=== PATIENT | female | born 1950 | race Caucasian/White ===

== ENCOUNTER 2018-10-13 06:19 | Day surgery (SDC) | payer MEDICARE, OTHER ==
[2018-10-13] MEDS ORDERED: Sodium Chloride 0.9% 1,000 ML IV SCH (07:00)
[2018-10-13] MEDS ORDERED: fentaNYL 100 MCG/2 ML SDV ONE (07:26)
[2018-10-13] MEDS ORDERED: Midazolam 1 MG/ML 2 ML SDV ONE (07:26)
[2018-10-13] MEDS ORDERED: Propofol 200 MG/20 ML SDV ONE (07:26)
[2018-10-13 09:54] VITALS: BP 145/70; PULSE 49
--- NOTE | 2018-10-13 10:56 | OR ---
DATE OF PROCEDURE: 10/13/2018 SURGEON: Dioni Mcclain MD PROCEDURE: Colonoscopy. FINDINGS: Normal colonoscopy, except for diverticula x2 (early diverticulosis). COMPLICATIONS: None. DOG BOARDER: None. ANESTHESIA: MAC. PREOPERATIVE DIAGNOSIS: Screening colonoscopy. POSTOPERATIVE DIAGNOSIS: Screening colonoscopy. RISKS: Risks, benefits, alternatives, and limitations including, but not limited to infection, bleeding, and perforation were explained to the patient, who wished to proceed. PROCEDURE IN DETAIL: The patient was placed in left lateral decubitus position. Digital rectal exam was performed without abnormality. The scope was introduced and advanced atraumatically to the ileocecal valve. A photo was taken. The scope was brought back through the ascending, transverse, descending colon, and retroflexed. No evidence of old or new blood. No masses. No polyps. Diverticulosis would be described as very early, very mild, and limited to sigmoid colon without evidence of diverticulitis or bleeding. No abnormalities on retroflexion. The patient tolerated the procedure well. Dioni Mcclain MD /[id number]
== END 2018-10-13 10:02 | disposition home or self-care (01) ==
LOC: JP.SDS 06:19
PROVIDERS: ATTEND Surgery
DX: Z12.11 Encounter for screening for malignant neoplasm of colon (principal); K57.30 Diverticulosis of large intestine without perforation or abscess without bleeding; E78.5 Hyperlipidemia, unspecified; F32.9 Major depressive disorder, single episode, unspecified; R73.9 Hyperglycemia, unspecified
CPT/HCPCS: G0121; J2250; J2704; J3010; J7030

== ENCOUNTER 2019-05-09 17:30 | Emergency (ER) | payer MEDICARE, OTHER ==
[2019-05-09 17:50] VITALS: BP 92/52; PULSE 89
--- NOTE | 2019-05-09 18:42 | EDM.PDOC ---
ED HPI GENERAL MEDICAL PROBLEM - General Chief Complaint: Back Pain or Injury Stated Complaint: MED[facility] Time Seen by Provider: 05/09/19 18:15 Source of Information: Reports: Patient, EMS History Limitations: Reports: No Limitations - History of Present Illness INITIAL COMMENTS - FREE TEXT/NARRATIVE: 68-year-old female brought in by EMS with low back and sacral pain. She has been struggling with discomfort since last week when she fell onto her backside. She has no bruising, but she feels like her tailbone is "sticking out ". She is on regular doses of oxycodone for chronic pain, she is taking more than usual and is about out and is concerned she will run out. She is also struggling with chronic GI symptoms, Heidi, elevated liver enzymes and has a variety of musculoskeletal complaints. No fevers or chills, no shortness of breath or chest pain. Denies nausea or vomiting. Her main concern is her sacral and low back pain and pain control. Onset: Sudden (Symptoms worsened 7 days ago when she fell onto her backside) Location: Reports: Back, Pelvis (Lower back sacral area) Quality: Reports: Sharp - Related Data Allergies Allergy/AdvReac Type Severity Reaction Status Date / Time buspirone [From BuSpar] Allergy Cannot Verified 05/09/19 17:40 Remember cyclobenzaprine HCl AdvReac Nausea Verified 05/09/19 17:40 [From Flexeril] sertraline HCl [From Zoloft] AdvReac Dizziness Verified 05/09/19 17:40 Home Meds: Home Meds Sulindac [Clinoril] 200 mg PO BID 03/09/15 [History] diazePAM [Diazepam] 1 tab PO Q8H PRN 03/09/15 [History] Aspirin 81 mg PO DAILY 10/12/18 [History] Cholecalciferol (Vitamin D3) [Cholecalciferol] 2,000 units PO DAILY 10/12/18 [ History] Escitalopram Oxalate 5 mg PO DAILY 10/12/18 [History] Fluticasone Propionate [Flonase] 1 spray CRISS DAILY PRN 10/12/18 [History] Metoprolol Succinate [Toprol XL] 25 mg PO DAILY 10/12/18 [History] Polyethylene Glycol 3350 [Clearlax] 17 g PO DAILY PRN 10/12/18 [History] Vitamin B Complex [B Complex] 1 tab PO DAILY 10/12/18 [History] carisoprodoL [Carisoprodol] 350 mg PO QID PRN 10/12/18 [History] oxyCODONE 10 mg PO Q6HR PRN 10/12/18 [History] tiZANidine [Zanaflex] 4 mg PO BID 10/12/18 [History] Past Medical History HEENT History: Reports: Impaired Vision Cardiovascular History: Reports: Hypertension, Other (See Below) Other Cardiovascular History: TACHYCARDIA Respiratory History: Reports: None Gastrointestinal History: Reports: Cholelithiasis, Chronic Constipation, Other ( See Below) Other Gastrointestinal History: LIVER ENZYMES ARE ELEVATED Genitourinary History: Reports: None 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: Reports: Musculoskeletal History: Reports: Arthritis, Back Pain, Chronic Other Musculoskeletal History: Lumbar degenerative disc disease tremor, meniscal tear Neurological History: Reports: Concussion Psychiatric History: Reports: Anxiety, Depression Other Psychiatric History: opiod dependence Endocrine/Metabolic History: Reports: None Other Endocrine/Metabolic History: hyperglycemia Hematologic History: Reports: None, Other (See Below) Other Hematologic History: abnormal hemoglobin HCC Immunologic History: Reports: None Oncologic (Cancer) History: Reports: None Dermatologic History: Reports: None - Infectious Disease History Infectious Disease History: Reports: Chicken Pox - Past Surgical History Head Surgeries/Procedures: Reports: None HEENT Surgical History: Reports: Adenoidectomy, Tonsillectomy Cardiovascular Surgical History: Reports: None Respiratory Surgical History: Reports: None GI Surgical History: Reports: None Female Surgical History: Reports: Hysterectomy, Salpingo-Oophorectomy Neurological Surgical History: Reports: None Musculoskeletal Surgical History: Reports: Arthroscopic Knee Dermatological Surgical History: Reports: None Social & Family History - Family History Family Medical History: Noncontributory - Tobacco Use Smoking Status *Q: Never Smoker - Caffeine Use Caffeine Use: Reports: Soda ED ROS GENERAL - Review of Systems Review Of Systems: See Below Constitutional: Reports: Weight Loss. Denies: Fever, Chills Respiratory: Denies: Shortness of Breath Cardiovascular: Denies: Chest Pain, Palpitations GI/Abdominal: Reports: Constipation (Constipation is intermittent, with lower abdominal cramping) : Reports: No Symptoms Musculoskeletal: Reports: Other (Been having a lot of pain in her knees as well. Takes anti-inflammatories for plantar fasciitis) Skin: Denies: Erythema Neurological: Denies: Dizziness, Headache ED EXAM,LOWER BACK PAIN/INJURY - Physical Exam Exam: See Below Exam Limited By: No Limitations General Appearance: Alert, No Apparent Distress Eye Exam: Bilateral Eye: EOMI (No jaundice) Head: Atraumatic Neck: Supple, Non-Tender Respiratory/Chest: No Respiratory Distress, Lungs Clear Cardiovascular: Regular Rate, Rhythm Back Exam: Other (Does react with tenderness to palpation over the lower lumbar spine and sacral area, no deformity or crepitus) Extremities: Other (Extremities are thin, no edema) Neurological: Alert, No Motor/Sensory Deficits, Oriented x 3 Psychiatric: Flat Affect Skin Exam: Warm, Dry Course - Vital Signs Last Recorded V/S: Last Vital Signs Temp 96.8 F L 05/09/19 17:49 Pulse 89 05/09/19 17:49 Resp 14 05/09/19 17:49 BP 92/52 L 05/09/19 17:49 Pulse Ox 97 05/09/19 17:49 - Orders/Labs/Meds Meds: Medications Discontinued Medications Generic Name Dose Route Start Last Admin Trade Name Roya PRN Reason Stop Dose Admin Hydromorphone HCl 1 mg 05/09/19 19:21 05/09/19 19:27 Dilaudid IM 05/09/19 19:22 1 mg ONETIME ONE Administration - Re-Assessments/Exams Free Text/Narrative Re-Assessment/Exam: 05/09/19 18:59 CT of the pelvis without contrast was obtained. Patient is extremely concerned about the number of pain pills she has, she called Friday to let her provider know she was going to run out soon and found she was on vacation. I think that is a large part of the reason she is here. 05/09/19 19:[address] is negative. I did give the patient 1 mg of IM Dilaudid but I was unable to provide more oxycodone and she asked what she is supposed to do when she "goes through withdrawal". She does have a few days of pills left so I told her to contact her primary provider in the next 24 to 48 hours. Increase activity as tolerated. Departure - Departure Time of Disposition: 20:10 Disposition: Home, Self-Care 01 Clinical Impression: Contusion of sacral region Qualifiers: Encounter type: initial encounter Qualified Code(s): S30.0XXA - Contusion of lower back and pelvis, initial encounter Chronic pain Qualifiers: Chronic pain type: chronic pain syndrome Qualified Code(s): G89.4 - Chronic pain syndrome - Discharge Information Instructions: Contusion, [id number] Referrals: PCP,None [Primary Care Provider] - Forms: ED Department Discharge Care Plan Goals: Continue with your regular medications and increase activity as tolerated. Contact your primary provider in the next couple of days for an update on your condition and any refills of medications you may need. Sepsis Event Note - Evaluation Sepsis Screening Result: No Definite Risk - Focused Exam Vital Signs: Vital Signs Temp Pulse Resp BP Pulse Ox 05/09/19 17:49 96.8 F L 89 14 92/52 L 97 Date Exam was Performed: 05/09/19 Time Exam was Performed: 20:15
--- NOTE | 2019-05-09 19:14 | CRLCT ---
HISTORY: Fall. Sacral pain. TECHNIQUE: CT pelvis without contrast. COMPARISON: None. FINDINGS: No fracture. Severe osteoarthritis of the left hip with severe joint space narrowing, subarticular sclerosis, subarticular cyst like changes, and osteophytes. Mild osteoarthritis the right hip. Pubic symphysis degenerative changes. Mild degenerative changes of the sacroiliac joints. Lower lumbar spine degenerative changes. No lytic or blastic bone lesions. Atherosclerotic calcifications. Colonic diverticulosis. IMPRESSION: 1. No fracture. No acute findings. 2. Severe osteoarthritis of the left hip. Mild osteoarthritis of the right hip. Please note that all CT scans at this facility use dose modulation, iterative reconstruction, and/or weight-based dosing when appropriate to reduce radiation dose to as low as reasonably achievable. Dictated by Azam Joshi MD @ May 10 2019 7:57AM Signed by Dr. Azam Joshi @ May 10 2019 8:07AM
[2019-05-09] MEDS ORDERED: HYDROmorphone 1 MG/ML Syringe IM ONE (19:21)
== END 2019-05-09 20:31 | disposition home or self-care (01) ==
LOC: JP.ED 17:30
DX: S30.0XXA Contusion of lower back and pelvis, initial encounter (principal); G89.4 Chronic pain syndrome; I10 Essential (primary) hypertension; M19.90 Unspecified osteoarthritis, unspecified site; F41.9 Anxiety disorder, unspecified; F32.9 Major depressive disorder, single episode, unspecified; Z88.8 Allergy status to other drugs, medicaments and biological substances; Z79.82 Long term (current) use of aspirin; Z79.899 Other long term (current) drug therapy; W19.XXXA Unspecified fall, initial encounter
CPT/HCPCS: 72192; 96372; 99283; 99284-25; J1170

== ENCOUNTER 2020-02-19 15:54 | Emergency (ER) | payer MEDICARE, OTHER ==
--- NOTE | 2020-02-19 16:49 | EDM.PDOC ---
ED HPI GENERAL MEDICAL PROBLEM - General Chief Complaint: Gastrointestinal Problem Stated Complaint: [facility] Time Seen by Provider: 02/19/20 16:31 Source of Information: Reports: Patient, RN Notes Reviewed History Limitations: Reports: No Limitations - History of Present Illness INITIAL COMMENTS - FREE TEXT/NARRATIVE: 69-year-old female presents emergency department a complaint of abdominal pain, she states she does have a problem with constipation has not had a decent bowel movement for some time she is passing liquid stool and small leslie abdominal Pain Score (Numeric/FACES): 8 - Related Data Allergies Allergy/AdvReac Type Severity Reaction Status Date / Time buspirone [From BuSpar] Allergy Cannot Verified 02/19/20 15:57 Remember cyclobenzaprine HCl AdvReac Nausea Verified 02/19/20 15:57 [From Flexeril] sertraline HCl [From Zoloft] AdvReac Dizziness Verified 02/19/20 15:57 Home Meds: Home Meds Cholecalciferol (Vitamin D3) [Cholecalciferol] 2,000 units PO DAILY 10/12/18 [History] Fluticasone Propionate [Flonase] 1 spray CRISS DAILY PRN 10/12/18 [History] Metoprolol Succinate [Toprol XL] 12.5 mg PO DAILY 10/12/18 [History] Vitamin B Complex [B Complex] 1 tab PO DAILY 10/12/18 [History] oxyCODONE 10 mg PO Q6HR 10/12/18 [History] polyethylene glycoL 3350 [Clearlax] 17 g PO DAILY PRN 10/12/18 [History] Alendronate [Fosamax] 70 mg PO ASDIRECTED 02/19/20 [History] Past Medical History HEENT History: Reports: Impaired Vision Cardiovascular History: Reports: Hypertension, Other (See Below) Other Cardiovascular History: TACHYCARDIA Gastrointestinal History: Reports: Cholelithiasis, Chronic Constipation, Other (See Below) Other Gastrointestinal History: LIVER ENZYMES ARE ELEVATED 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: Reports: Musculoskeletal History: Reports: Arthritis, Back Pain, Chronic Other Musculoskeletal History: Lumbar degenerative disc disease tremor, meniscal tear Neurological History: Reports: Concussion Psychiatric History: Reports: Anxiety, Depression Other Psychiatric History: opiod dependence Endocrine/Metabolic History: Reports: Other (See Below) Other Endocrine/Metabolic History: hyperglycemia Hematologic History: Reports: None, Other (See Below) Other Hematologic History: abnormal hemoglobin HCC Immunologic History: Reports: None Oncologic (Cancer) History: Reports: None Dermatologic History: Reports: None - Infectious Disease History Infectious Disease History: Reports: Chicken Pox - Past Surgical History Head Surgeries/Procedures: Reports: None HEENT Surgical History: Reports: Adenoidectomy, Tonsillectomy Cardiovascular Surgical History: Reports: None Respiratory Surgical History: Reports: None Female Surgical History: Reports: Hysterectomy, Salpingo-Oophorectomy, Other (See Below) Other Female Surgeries/Procedures: partial hysterectomy, removal cyst Neurological Surgical History: Reports: None Musculoskeletal Surgical History: Reports: Arthroscopic Knee Dermatological Surgical History: Reports: None Social & Family History - Family History Family Medical History: No Pertinent Family History - Tobacco Use Tobacco Use Status *Q: Never Tobacco User - Caffeine Use Caffeine Use: Reports: Soda - Recreational Drug Use Recreational Drug Use: No ED ROS GENERAL - Review of Systems Review Of Systems: See Below GI/Abdominal: Reports: Abdominal Pain, Constipation ED EXAM, GI/ABD - Physical Exam Exam: See Below Exam Limited By: No Limitations General Appearance: Alert, WD/WN, No Apparent Distress Respiratory/Chest: No Respiratory Distress GI/Abdominal Exam: Soft, Non-Tender Course - Vital Signs Last Recorded V/S: Last Vital Signs Temp 98.5 F 02/19/20 16:03 Pulse 100 02/19/20 18:05 Resp 12 02/19/20 18:05 BP 127/82 02/19/20 18:05 Pulse Ox 96 02/19/20 18:05 - Orders/Labs/Meds Orders: Active Orders 24 hr Category Date Time Status Enema [RC] ASDIRECTED Care 02/19/20 17:59 Active Departure - Departure Time of Disposition: 18:34 Disposition: Home, Self-Care 01 Condition: Fair Clinical Impression: Functional constipation - Discharge Information Instructions: Constipation, Adult Referrals: PCP,None [Primary Care Provider] - Forms: ED Department Discharge Additional Instructions: Continue to use MiraLAX at home, please followup with your primary care provider in 3-5 days if not better, please call return to the emergency department with worsening of symptoms. Sepsis Event Note (ED) - Evaluation Sepsis Screening Result: No Definite Risk - Focused Exam Vital Signs: Vital Signs Temp Pulse Resp BP Pulse Ox 02/19/20 18:05 100 12 127/82 96 02/19/20 17:17 102 H 12 142/85 H 96 02/19/20 16:03 98.5 F 103 H 12 144/100 H 95 - My Orders Last 24 Hours: My Active Orders 02/19/20 17:59 Enema [RC] ASDIRECTED - Assessment/Plan Last 24 Hours: My Active Orders 02/19/20 17:59 Enema [RC] ASDIRECTED Plan: Assessment Acuity = acute Site and laterality = functional constipation Etiology = slow transit time Manifestations = abdominal pain Location of injury = Home Lab values = plain film the abdomen does show large amount of stool Plan Good success with enema provided in the ED she is can use MiraLAX at home follow-up primary care 3 to 5 days if not better This note was dictated using [employer] voice recognition software please call with any questions on syntax or grammar.
--- NOTE | 2020-02-19 17:36 | CRLCR ---
INDICATION: Pain TECHNIQUE: KUB FINDINGS: Nonspecific bowel gas pattern. No dilated loops of bowel. multiple air-fluid levels large amount stool within the colon no free air. No abnormal masses or calcifications. Impression: Nonspecific nonobstructive bowel gas pattern with large colonic stool volume. Scattered air-fluid levels. Dictated by Aileen José MD @ Feb 19 2020 5:33PM Signed by Dr. Aileen José @ Feb 19 2020 5:34PM
[2020-02-19 18:05] VITALS: BP 127/82; PULSE 100
== END 2020-02-19 19:49 | disposition home or self-care (01) ==
LOC: JP.ED 15:54
DX: K59.04 Chronic idiopathic constipation (principal); I10 Essential (primary) hypertension; Z88.8 Allergy status to other drugs, medicaments and biological substances; Z79.899 Other long term (current) drug therapy
CPT/HCPCS: 74018; 99283

== ENCOUNTER 2020-12-08 12:58 | Inpatient (IN) | payer MEDICARE, OTHER ==
--- NOTE | 2020-12-08 13:47 | EDM.PDOCBH ---
ED HPI GENERAL MEDICAL PROBLEM - General Chief Complaint: Abdominal Pain Stated Complaint: [facility] Time Seen by Provider: 12/08/20 13:38 Source of Information: Reports: Patient, RN Notes Reviewed History Limitations: Reports: No Limitations - History of Present Illness INITIAL COMMENTS - FREE TEXT/NARRATIVE: 69-year-old female presents emergency department today right upper quadrant pain, she recently underwent CT scan earlier this week which shows with cholelithiasis, she states the pain is getting worse she does have nausea which is pain there is no relationship to food arrived by EMS received 150 mcg of fentanyl and 4 mg Zofran - Related Data Allergies Allergy/AdvReac Type Severity Reaction Status Date / Time buspirone [From BuSpar] Allergy Cannot Verified 12/08/20 14:23 Remember cyclobenzaprine HCl AdvReac Nausea Verified 12/08/20 14:23 [From Flexeril] sertraline HCl [From Zoloft] AdvReac Dizziness Verified 12/08/20 14:23 Home Meds: Home Meds Cholecalciferol (Vitamin D3) [Cholecalciferol] 2,000 units PO DAILY 10/12/18 [History] Fluticasone Propionate [Flonase] 1 spray CRISS DAILY PRN 10/12/18 [History] Metoprolol Succinate [Toprol XL] 12.5 mg PO DAILY 10/12/18 [History] Vitamin B Complex [B Complex] 1 tab PO DAILY 10/12/18 [History] oxyCODONE 10 mg PO Q6HR 10/12/18 [History] polyethylene glycoL 3350 [Clearlax] 17 g PO DAILY PRN 10/12/18 [History] Alendronate [Fosamax] 70 mg PO ASDIRECTED 02/19/20 [History] Naloxegol Oxalate [Movantik] 1 tab PO DAILY 12/08/20 [History] Past Medical History HEENT History: Reports: Impaired Vision Cardiovascular History: Reports: Hypertension, Other (See Below) Other Cardiovascular History: TACHYCARDIA Gastrointestinal History: Reports: Cholelithiasis, Chronic Constipation, Other (See Below) Other Gastrointestinal History: LIVER 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: Musculoskeletal History: Reports: Arthritis, Back Pain, Chronic Other Musculoskeletal History: Lumbar degenerative disc disease tremor, meniscal tear Neurological History: Reports: Concussion Psychiatric History: Reports: Anxiety, Depression Other Psychiatric History: opiod dependence Endocrine/Metabolic History: Reports: Other (See Below) Other Endocrine/Metabolic History: hyperglycemia Hematologic History: Reports: Other (See Below) Other Hematologic History: abnormal hemoglobin HCC - Infectious Disease History Infectious Disease History: Reports: Chicken Pox - Past Surgical History Head Surgeries/Procedures: Reports: None HEENT Surgical History: Reports: Adenoidectomy, Tonsillectomy Cardiovascular Surgical History: Reports: None Respiratory Surgical History: Reports: None Female Surgical History: Reports: Hysterectomy, Salpingo-Oophorectomy, Other (See Below) Other Female Surgeries/Procedures: partial hysterectomy, removal cyst Neurological Surgical History: Reports: None Musculoskeletal Surgical History: Reports: Arthroscopic Knee Dermatological Surgical History: Reports: None Social & Family History - Family History Family Medical History: No Pertinent Family History - Caffeine Use Caffeine Use: Reports: Soda ED ROS GENERAL - Review of Systems Review Of Systems: See Below Constitutional: Denies: Fever, Chills HEENT: Reports: No Symptoms Respiratory: Reports: No Symptoms Cardiovascular: Reports: No Symptoms GI/Abdominal: Reports: Abdominal Pain, Nausea : Reports: No Symptoms ED EXAM, BEHAVIORAL HEALTH - Physical Exam Exam: See Below Exam Limited By: No Limitations General Appearance: Alert, WD/WN, No Apparent Distress Respiratory/Chest: No Respiratory Distress, Lungs Clear, Normal Breath Sounds, No Accessory Muscle Use, Chest Non-Tender Cardiovascular: Regular Rate, Rhythm, No Murmur GI/Abdominal: Soft, Tender (Right upper quadrant) COURSE, BEHAVIORAL HEALTH COMP - Course Vital Signs: Last Vital Signs Temp 97.3 F 12/09/20 03:31 Pulse 94 12/09/20 03:31 Resp 18 12/09/20 03:31 BP 139/70 12/09/20 03:31 Pulse Ox 92 L 12/09/20 03:31 Orders, Labs, Meds: Active Orders 24 hr Category Date Time Status Verify Patient Consent Obtain [RC] ASDIRECTED Care 12/09/20 08:30 Active Ampicillin/Sulbactam Na [Unasyn] 1.5 gm Med 12/08/20 23:30 Active Sodium Chloride 0.9% [Normal Saline] 50 ml IV Q6H Dextrose 5%-Lactated Ringers 1,000 ml Med 12/08/20 15:45 Active IV ASDIRECTED HYDROmorphone [Dilaudid] Med 12/08/20 23:20 Active 0.5 mg IVPUSH Q4H PRN Ropivacaine [Naropin 0.5%] 40 ml Med 12/09/20 08:00 Active dexAMETHasone [Decadron] 8 mg EPINEPHrine [Adrenalin] 0.4 mg Sodium Chloride 0.9% [Normal Saline] 37.6 ml NERVRT ASDIRECTED SCD [Sequential Compression Device] [OM.PC] Routine Oth 12/09/20 07:30 Ordered Medication Orders Ropivacaine 40 ml/Dexamethasone 8 mg/Epinephrine HCl 0.4 mg/ Sodium Chloride 37.6 ml 0 ml NERVRT ASDIRECTED ODILIA Hydromorphone HCl (Hydromorphone 0.5 Mg/0.5 Ml Syringe) 0.5 mg IVPUSH Q4H PRN PRN Reason: Pain Last Admin: 12/09/20 07:35 Dose: 0.5 mg Documented by: Admin: 12/09/20 03:31 Dose: 0.5 mg Documented by: Admin: 12/08/20 23:30 Dose: 0.5 mg Documented by: SRINIVASA Dextrose/Lactated Ringer's (Dextrose 5%-Lactated Ringers) 1,000 mls @ 125 mls/hr IV ASDIRECTED [facility] Last Admin: 12/09/20 01:44 Dose: 125 mls/hr Documented by: Infusion: 12/09/20 00:36 Dose: 125 mls/hr Documented by: Admin: 12/08/20 16:36 Dose: 125 mls/hr Documented by: HARPER Ampicillin Sodium/Sulbactam (Sodium 1.5 gm/ Sodium Chloride) 50 mls @ 100 mls/hr IV Q6H [facility] Last Admin: 12/09/20 05:28 Dose: 100 mls/hr Documented by: Admin: 12/08/20 23:31 Dose: 100 mls/hr Documented by: SRINIVASA Laboratory Tests 12/08/20 12/08/20 12/08/20 Range/Units 13:43 13:43 13:43 WBC 16.6 H (4.5-11.0) K/uL RBC 5.31 (3.30-5.50) M/uL Hgb 16.2 H (12.0-15.0) g/dL Hct 47.8 (36.0-48.0) % MCV 90 (80-98) fL MCH 31 (27-31) pg MCHC 34 (32-36) % Plt Count 97 L (150-400) K/uL Neut % (Auto) 87.6 H (36-66) % Lymph % (Auto) 5.3 L (24-44) % Grant % (Auto) 4.7 (2-6) % Eos % (Auto) 2.3 (2-4) % Baso % (Auto) 0.1 (0-1) % Sodium 134 L (140-148) mmol/L Potassium 4.9 (3.6-5.2) mmol/L Chloride 100 (100-108) mmol/L Carbon Dioxide 23 (21-32) mmol/L Anion Gap 15.9 H (5.0-14.0) mmol/L BUN 12 (7-18) mg/dL Creatinine 1.1 H (0.6-1.0) mg/dL Est Cr Clr Drug Dosing 35.91 mL/min Estimated GFR (MDRD) 49 L (>60) Glucose 114 H (74-106) mg/dL Lactic Acid 1.6 (0.4-2.0) mmol/L Calcium 8.4 L (8.5-10.1) mg/dL Total Bilirubin 0.7 (0.2-1.0) mg/dL AST 22 (15-37) U/L ALT 24 (12-78) U/L Alkaline Phosphatase 116 (46-116) U/L Troponin I < 0.017 (0.000-0.056) ng/mL Total Protein 6.4 (6.4-8.2) g/dL Albumin 3.4 (3.4-5.0) g/dL Globulin 3.0 (2.3-3.5) g/dL Albumin/Globulin Ratio 1.1 L (1.2-2.2) Lipase 87 (73-393) U/L Urine Color (YELLOW) Urine Appearance (CLEAR) Urine pH (5.0-8.0) Ur Specific [place] (1.008-1.030) Urine Protein (NEGATIVE) mg/dL Urine Glucose (UA) (NEGATIVE) mg/dL Urine Ketones (NEGATIVE) mg/dL Urine Occult Blood (NEGATIVE) Urine Nitrite (NEGATIVE) Urine Bilirubin (NEGATIVE) Urine Urobilinogen (0.2-1.0) EU/dL Ur Leukocyte Esterase (NEGATIVE) Urine RBC (0-5) Urine WBC (0-5) Ur Epithelial Cells Amorphous Sediment Urine Bacteria Urine Mucus SARS CoV-2 RNA Rapid VICTORINA 12/08/20 12/08/20 Range/Units 15:19 15:55 WBC (4.5-11.0) K/uL RBC (3.30-5.50) M/uL Hgb (12.0-15.0) g/dL Hct (36.0-48.0) % MCV (80-98) fL MCH (27-31) pg MCHC (32-36) % Plt Count (150-400) K/uL Neut % (Auto) (36-66) % Lymph % (Auto) (24-44) % Grant % (Auto) (2-6) % Eos % (Auto) (2-4) % Baso % (Auto) (0-1) % Sodium (140-148) mmol/L Potassium (3.6-5.2) mmol/L Chloride (100-108) mmol/L Carbon Dioxide (21-32) mmol/L Anion Gap (5.0-14.0) mmol/L BUN (7-18) mg/dL Creatinine (0.6-1.0) mg/dL Est Cr Clr Drug Dosing mL/min Estimated GFR (MDRD) (>60) Glucose (74-106) mg/dL Lactic Acid (0.4-2.0) mmol/L Calcium (8.5-10.1) mg/dL Total Bilirubin (0.2-1.0) mg/dL AST (15-37) U/L ALT (12-78) U/L Alkaline Phosphatase (46-116) U/L Troponin I (0.000-0.056) ng/mL Total Protein (6.4-8.2) g/dL Albumin (3.4-5.0) g/dL Globulin (2.3-3.5) g/dL Albumin/Globulin Ratio (1.2-2.2) Lipase (73-393) U/L Urine Color Yellow (YELLOW) Urine Appearance Clear (CLEAR) Urine pH 6.0 (5.0-8.0) Ur Specific [place] 1.025 (1.008-1.030) Urine Protein Negative (NEGATIVE) mg/dL Urine Glucose (UA) Negative (NEGATIVE) mg/dL Urine Ketones 15 H (NEGATIVE) mg/dL Urine Occult Blood Negative (NEGATIVE) Urine Nitrite Negative (NEGATIVE) Urine Bilirubin Negative (NEGATIVE) Urine Urobilinogen 0.2 (0.2-1.0) EU/dL Ur Leukocyte Esterase Negative (NEGATIVE) Urine RBC 0-5 (0-5) Urine WBC 0-5 (0-5) Ur Epithelial Cells Few Amorphous Sediment Not seen Urine Bacteria Moderate Urine Mucus Not seen SARS CoV-2 RNA Rapid VICTORINA Negative Medications Generic Name Dose Route Start Last Admin Trade Name Roya PRN Reason Stop Dose Admin Ropivacaine 40 ml/ 0 ml 12/09/20 08:00 Dexamethasone 8 mg/ NERVRT Epinephrine HCl 0.4 mg/ Sodium ASDIRECTED ODILIA Chloride 37.6 ml Hydromorphone HCl 0.5 mg 12/08/20 23:20 12/09/20 07:35 Hydromorphone 0.5 Mg/0.5 Ml Syringe IVPUSH 0.5 mg Q4H PRN Administration Pain Dextrose/Lactated Ringer's 1,000 mls @ 125 mls/hr 12/08/20 15:45 12/09/20 01:44 Dextrose 5%-Lactated Ringers IV 125 mls/hr ASDIRECTED ODILIA Administration Ampicillin Sodium/Sulbactam 50 mls @ 100 mls/hr 12/08/20 23:30 12/09/20 05:28 Sodium 1.5 gm/ Sodium Chloride IV 100 mls/hr Q6H ODILIA Administration Discontinued Medications Generic Name Dose Route Start Last Admin Trade Name Roya PRN Reason Stop Dose Admin Acetaminophen 1,000 mg 12/08/20 19:37 12/08/20 19:48 Acetaminophen 500 Mg Tab PO 12/08/20 19:38 1,000 mg ONETIME ONE Administration Bupivacaine HCl/Epinephrine Bitart Confirm 12/09/20 08:43 Bupivacaine 0.5%/Epinephrine 1:200,000 50 Ml Mdv Administered 12/09/20 08:44 Dose 50 ml .ROUTE .STK-MED ONE Hydromorphone HCl 0.5 mg 12/08/20 14:13 12/08/20 14:20 Hydromorphone 0.5 Mg/0.5 Ml Syringe IVPUSH 12/08/20 14:14 0.5 mg ONETIME ONE Administration Hydromorphone HCl 0.5 mg 12/08/20 19:19 12/08/20 19:33 Hydromorphone 0.5 Mg/0.5 Ml Syringe IVPUSH 12/08/20 19:20 0.5 mg ONETIME ONE Administration Multivitamins/Minerals 10 ml/ 1,013 mls @ 100 mls/hr 12/08/20 15:45 Thiamine HCl 200 mg/ Zinc 1 ml IV / Dextrose/Lactated Ringer's ASDIRECTED ODILIA Ampicillin Sodium/Sulbactam 100 mls @ 200 mls/hr 12/08/20 16:00 12/08/20 16:36 Sodium 3 gm/ Sodium Chloride IV 12/08/20 16:29 200 mls/hr ONETIME ONE Administration Ampicillin Sodium/Sulbactam 50 mls @ 100 mls/hr 12/08/20 23:30 Sodium 1.5 gm/ Sodium Chloride IV Q6H ODILIA Aztreonam 1 gm/ Sodium 50 mls @ 100 mls/hr 12/09/20 08:00 12/09/20 08:53 Chloride IV 12/09/20 08:29 100 mls/hr ONCALL ONE Administration Departure - Departure Time of Disposition: 08:58 Disposition: Admitted As Inpatient 65 Condition: Fair Clinical Impression: Cholecystitis - Discharge Information Sepsis Event Note (ED) - Focused Exam Vital Signs: Vital Signs Temp Pulse Resp BP Pulse Ox 12/09/20 03:31 97.3 F 94 18 139/70 92 L 12/08/20 22:35 97.8 F 112 H 18 113/54 L 92 L - My Orders Last 24 Hours: My Active Orders 12/08/20 15:45 Dextrose 5%-Lactated Ringers 1,000 ml IV ASDIRECTED - Assessment/Plan Last 24 Hours: My Active Orders 12/08/20 15:45 Dextrose 5%-Lactated Ringers 1,000 ml IV ASDIRECTED Plan: Assessment Acuity = acute Site and laterality = acute cholecystitis Etiology = unknown Manifestations = abdominal pain Location of injury = Home Lab values = WBC elevated 16.6 consistent leukocytosis creatinine elevated 1.1 consistent acute renal failure stage G3 a lactic acid normal 1.6 Covid is negative ultrasound confirms cholecystitis Plan Because this lady needed admission last night no beds could not transfer call discussed case with Dr. Isbell last night he agreed to take her to the operating room this morning when beds become available therefore we treated her in the emergency department through the night This note was dictated using [employer] voice recognition software please call with any questions on syntax or grammar.
[2020-12-08] MEDS ORDERED: HYDROmorphone 0.5 MG/0.5 ML Syringe IVPUSH ONE ×2 (14:13→19:19)
--- NOTE | 2020-12-08 15:17 | US ---
Abdomen Ltd CLINICAL HISTORY: Right upper quadrant pain COMPARISON: CT 12/04/2020. TECHNIQUE: Real-time images were obtained through the right upper quadrant. FINDINGS: Detail is limited due to patient body habitus. The liver is free of mass or biliary dilatation. There is normal hepatic echotexture. The gallbladder contains multiple stones. There is a soft tissue like density in the mid gallbladder which does not shadow. There is no internal flow. This measures approximately 2.0 x 2.9 cm. The gallbladder wall is thickened at 5 mm. There is edema within the gallbladder wall. There may be a small amount of pericholecystic fluid.. The common bile duct is obscured.. The pancreas is partially obscured. The right kidney has a normal appearance. The IVC is normal. IMPRESSION: Cholelithiasis with changes of acute cholecystitis Nonshadowing soft tissue tissue filling defect within the gallbladder. This may be debris or possibly a gallbladder polyp Common bile duct is not visualized
[2020-12-08] MEDS ORDERED: Piperacillin/Tazobactam 4.5 GM in Sodium Chloride 0.9% 100 ML IV ONE (15:20)
[2020-12-08] MEDS ORDERED: Ampicillin/Sulbactam Na 3 GM in Sodium Chloride 0.9% 100 ML IV SCH (15:45)
[2020-12-08] MEDS ORDERED: MVI, Adult with Vitamin K 10 ML, Thiamine 200 MG, Zinc/Copper/Manganese/Selenium 1 ML i... IV SCH ×4 (15:45)
[2020-12-08] MEDS ORDERED: Ampicillin/Sulbactam Na 3 GM in Sodium Chloride 0.9% 100 ML IV ONE (16:00)
[2020-12-08] MEDS: Dextrose 5%-Lactated Ringers 1,000 ML IV SCH (16:36)
[2020-12-08] MEDS ORDERED: Acetaminophen 500 MG Tab PO ONE (19:37)
[2020-12-08] MEDS: HYDROmorphone 0.5 MG/0.5 ML Syringe IVPUSH PRN (23:30)
[2020-12-08] MEDS ORDERED: Ampicillin/Sulbactam Na 1.5 GM in Sodium Chloride 0.9% 50 ML IV SCH (23:30)
[2020-12-08] MEDS: Ampicillin/Sulbactam Na 1.5 GM in Sodium Chloride 0.9% 50 ML IV SCH (23:31)
[2020-12-09] MEDS: Dextrose 5%-Lactated Ringers 1,000 ML IV SCH ×3 (01:44→23:26)
[2020-12-09] MEDS: HYDROmorphone 0.5 MG/0.5 ML Syringe IVPUSH PRN ×3 (03:31→17:27)
[2020-12-09] MEDS: Ampicillin/Sulbactam Na 1.5 GM in Sodium Chloride 0.9% 50 ML IV SCH (05:28)
[2020-12-09] MEDS ORDERED: Ropivacaine 40 ML, dexAMETHasone 8 MG, EPINEPHrine 0.4 MG, Sodium Chloride 0.9% 37.6 ML NERVRT SCH ×4 (08:00)
[2020-12-09] MEDS ORDERED: Bupivacaine 0.5%/EPINEPHrine 1:200,000 50 ML MDV ONE (08:43)
[2020-12-09] MEDS ORDERED: Neostigmine Methylsulfate 1 MG/ML 5 ML Syringe ONE (08:56)
[2020-12-09] MEDS ORDERED: Succinylcholine 200 MG/10 ML MDV ONE (08:56)
[2020-12-09] MEDS ORDERED: Propofol 200 MG/20 ML SDV ONE (08:56)
[2020-12-09] MEDS ORDERED: fentaNYL 250 MCG/5 ML SDV ONE (08:56)
[2020-12-09] MEDS ORDERED: Rocuronium 50 MG/5 ML Vial ONE (08:56)
[2020-12-09] MEDS ORDERED: Glycopyrrolate 0.2 MG/ML 5 ML MDV ONE (08:56)
[2020-12-09] MEDS ORDERED: Dexamethasone 4 MG/ML SDV ONE (08:56)
[2020-12-09] MEDS ORDERED: Ondansetron 4 MG/2 ML SDV ONE (08:56)
[2020-12-09] MEDS ORDERED: Lactated Ringers 1,000 ML ONE (09:20)
[2020-12-09] MEDS ORDERED: Labetalol 20 MG/4 ML Syringe ONE (09:29)
[2020-12-09] MEDS ORDERED: hydrOXYzine HCL 100 MG/2 ML SDV IM ONE (10:37)
[2020-12-09] MEDS ORDERED: fentaNYL 100 MCG/2 ML SDV IVPUSH ONE ×2 (10:39→11:05)
[2020-12-09] MEDS ORDERED: Ondansetron 4 MG/2 ML SDV IVPUSH PRN (12:00)
[2020-12-09] MEDS: HYDROmorphone 1 MG/ML Syringe IV PRN ×3 (12:05→20:21)
[2020-12-09] MEDS: oxyCODONE 5 MG Tab PO PRN ×3 (13:09→21:46)
[2020-12-09] MEDS ORDERED: Pantoprazole 40 MG Vial IVPUSH SCH (14:00)
[2020-12-09] MEDS: Ampicillin/Sulbactam Na 3 GM in Sodium Chloride 0.9% 100 ML IV SCH ×2 (14:04→20:17)
[2020-12-09] MEDS: Metoprolol Succinate 25 MG Tab.ER PO SCH (14:04)
[2020-12-10] MEDS: HYDROmorphone 1 MG/ML Syringe IV PRN (00:37)
[2020-12-10] MEDS: Ampicillin/Sulbactam Na 3 GM in Sodium Chloride 0.9% 100 ML IV SCH ×4 (02:23→19:52)
[2020-12-10] MEDS: oxyCODONE 5 MG Tab PO PRN ×6 (02:27→23:31)
[2020-12-10] MEDS: Docusate Sodium 100 MG Cap PO SCH ×2 (08:03→21:16)
[2020-12-10] MEDS: Bisacodyl 5 MG Tab PO SCH ×2 (08:04→21:16)
[2020-12-10] MEDS: HYDROmorphone 0.5 MG/0.5 ML Syringe IVPUSH PRN ×2 (10:16→14:00)
[2020-12-10] MEDS: Metoprolol Succinate 25 MG Tab.ER PO SCH (10:23)
[2020-12-10] MEDS: Pantoprazole 40 MG Tab.CR PO SCH (11:20)
[2020-12-10] MEDS: Dextrose 5%-Lactated Ringers 1,000 ML IV SCH ×2 (11:55→23:32)
[2020-12-10] MEDS: HYDROmorphone 2 MG Tab PO PRN (21:16)
[2020-12-10] MEDS: Temazepam 15 MG Cap PO PRN (21:16)
[2020-12-11] MEDS: HYDROmorphone 2 MG Tab PO PRN ×5 (01:13→20:36)
[2020-12-11] MEDS: Ampicillin/Sulbactam Na 3 GM in Sodium Chloride 0.9% 100 ML IV SCH ×3 (02:05→13:33)
[2020-12-11] MEDS: oxyCODONE 5 MG Tab PO PRN ×4 (03:59→18:13)
[2020-12-11] MEDS: Pantoprazole 40 MG Tab.CR PO SCH (07:49)
[2020-12-11] MEDS ORDERED: Furosemide 20 MG/2 ML VIAL IV ONE (08:30)
[2020-12-11] MEDS ORDERED: Bisacodyl 5 MG Tab PO SCH (09:00)
[2020-12-11] MEDS: Bisacodyl 5 MG Tab PO SCH ×2 (09:35→20:36)
[2020-12-11] MEDS: Docusate Sodium 100 MG Cap PO SCH ×2 (09:35→20:36)
[2020-12-11] MEDS: Metoprolol Succinate 25 MG Tab.ER PO SCH (09:36)
[2020-12-11] MEDS: Temazepam 15 MG Cap PO PRN (20:37)
[2020-12-12] MEDS: HYDROmorphone 2 MG Tab PO PRN ×5 (00:31→19:47)
[2020-12-12] MEDS: oxyCODONE 5 MG Tab PO PRN ×5 (02:43→22:04)
--- NOTE | 2020-12-12 08:06 | PN ---
DATE OF SERVICE: 12/12/2020 Evlein is postop cholecystectomy. She reports she still is having quite a bit of pain. She started passing gas. She has been afebrile. Oral intake not recorded. She is voiding independently and has had 4 voids. Urine output 2900. REVIEW OF SYSTEMS: Remainder of review of systems negative for any pertinent positives and negatives. OBJECTIVE: Evelin Mcintyre is a 69-year-old female. She is quite sleepy. TPR is 98, 104, 16, and blood pressure 148/64. HEENT: Negative. NECK: Supple. HEART: Regular rate and rhythm. LUNGS: Clear. ABDOMEN: Dressings dry and intact. Abdominal binder on. EXTREMITIES: Without peripheral edema. ASSESSMENT: Diagnostic laparoscopy with: 1. Cholecystectomy. 2. Repair of incarcerated incisional hernia. POSTOPERATIVE DIAGNOSIS: Acute cholecystitis and incarcerated incisional hernia. DATE OF PROCEDURE: 12/09/2020. SURGEON: Messi Isbell MD PLAN: Continue to give current bowel stimulation. She does take Movantik at home occasionally, but states she does not want to take that here because of increased cramping. Continue use of incentive spirometer and ambulation. We will evaluate p.r.n. or in a.m. Fatimah Mendoza PA-C /[id number]
[2020-12-12] MEDS: Pantoprazole 40 MG Tab.CR PO SCH (08:48)
[2020-12-12] MEDS: Metoprolol Succinate 25 MG Tab.ER PO SCH (08:48)
[2020-12-12] MEDS: Bisacodyl 5 MG Tab PO SCH ×2 (08:48→20:24)
[2020-12-12] MEDS: Docusate Sodium 100 MG Cap PO SCH ×2 (08:49→20:24)
--- NOTE | 2020-12-12 10:27 | PN ---
DATE OF SERVICE: 12/11/2020 The patient is still having quite a bit of discomfort. She does normally take 4 doses of daily, so she has fair bit of narcotic tolerance. We will contact that dose, otherwise, she may be interested in short-term long term placement and we will have OT and PT as well as discharge planning initiate that today. JANINE drain will be coming out and we will begin some bowel stimulation. Messi Isbell MD /[id number]
--- NOTE | 2020-12-12 11:18 | PN ---
DATE OF SERVICE: 12/10/2020 The patient has been afebrile with stable vital signs. She is still having a fair bit of discomfort. White count remains elevated some at 18,000, otherwise her labs look satisfactory. We will the pericholecystic abscess growing some gram-negative rods and with this we will continue the IV antibiotics for the next 24 hours. The wound VAC will be removed and dressing changes initiated and she will likely be ready for discharge home tomorrow. Messi Isbell MD /[id number]
--- NOTE | 2020-12-12 14:33 | OR ---
DATE OF PROCEDURE: 12/09/2020 SURGEON: Messi Isbell MD PREOPERATIVE DIAGNOSIS: Acute cholecystitis and cholelithiasis. POSTOPERATIVE DIAGNOSES: 1. Acute cholecystitis and cholelithiasis. 2. Incarcerated incisional hernia. 3. Pericholecystic abscess. OPERATIVE PROCEDURE: Diagnostic laparoscopy with: 1. Cholecystectomy (11548). 2. Repair of incarcerated incisional hernia (34735). 3. Drainage of pericholecystic abscess (19337). ANESTHESIA: General. INDICATION FOR PROCEDURE: A 69-year-old female presenting with cholecystitis. After preoperative preparation and antibiotics, the patient is to undergo laparoscopic or if necessary open cholecystectomy. Potential risks including bleeding, infection, injury to underlying viscera, possible migration of stones to common bile duct were all reviewed along with remote possibility of cardiopulmonary, septic, or hemorrhagic complications leading to and the patient wishes to proceed. DESCRIPTION OF PROCEDURE: The patient was taken to the operating room, placed in a supine position. After general endotracheal anesthesia was induced, the abdomen was prepped and draped. A transverse epigastric incision was made and peritoneal cavity entered under direct vision with an Optiview trocar and inflated to 15 mmHg pressure of CO2. No underlying trocar insertion site injuries were seen. Following this, the patient was noted to have an incarcerated hernia in the immediate subumbilical area due to a previous transverse incision in that area. Incision overlying this was then made and carried down through the skin and subcutaneous tissue and the incarcerated omentum was then dissected free from the surrounding soft tissues and we turned back to the peritoneal cavity. Through this, a 12 mm trocar was placed and used at this point for the camera port. A 5 mm right subcostal trocar was then placed and the gallbladder was examined. Gallbladder was noted to be extremely friable, distended, and mosher in color. The gallbladder was initially decompressed after opening the apex with electrocautery to allow better handling. As the gallbladder retracted anteriorly and superiorly, an inflammatory fluid collection or abscess was encountered posterior to the gallbladder. This was evacuated and culture was obtained. Subsequent cultures were growing up gram-negative rods. The dissection began on the gallbladder neck and continued around the gallbladder neck and cystic duct junction. Once that area was well delineated along with adjacent cystic artery, both structures were taken with MARIE staple loads and then gallbladder was then dissected off the gallbladder bed using Harmonic scalpel and it was delivered in a somewhat piecemeal fashion through the epigastric trocar site and contained 1 large stone as well as multiple smaller stones. Area of dissection was inspected. No bleeding or bile leaks were seen. A Eliot-Parmar drain was taken out through the right lateral trocar site, positioned in the area of the gallbladder fossa. The camera was then brought back up to the epigastric site and the hernia was then repaired by placement of 0 Vicryl suture in a transverse orientation using the laparoscopic suture passer. Once these were in place, the remaining trocars were removed and peritoneal cavity deflated. Fascia at the epigastric site was also closed with 0 Vicryl stitch and the hernia site sutures were then tied. The subumbilical incision was then closed at the skin level with some 4-0 Vicryl stitch and the epigastric site was packed open at the subcutaneous tissue level with Iodoform gauze. The patient then received bilateral transversus abdominis plane blocks and then the incision was anesthetized with some 0.5% Marcaine as well. The patient was taken to the recovery room in satisfactory condition. Messi Isbell MD /[id number]
[2020-12-12] MEDS: Temazepam 15 MG Cap PO PRN (20:56)
[2020-12-13] MEDS: HYDROmorphone 2 MG Tab PO PRN ×2 (01:49→06:09)
[2020-12-13] MEDS: oxyCODONE 5 MG Tab PO PRN ×2 (03:59→08:51)
[2020-12-13 07:10] VITALS: BP 144/75; PULSE 94
[2020-12-13] MEDS: Metoprolol Succinate 25 MG Tab.ER PO SCH (08:52)
[2020-12-13] MEDS ORDERED: Celecoxib 200 MG Cap PO ONE (09:00)
[2020-12-13] MEDS: Docusate Sodium 100 MG Cap PO SCH (09:01)
[2020-12-13] MEDS: Pantoprazole 40 MG Tab.CR PO SCH (09:01)
[2020-12-13] MEDS: Bisacodyl 5 MG Tab PO SCH (09:01)
--- NOTE | 2020-12-13 13:15 | DISCH ---
ADMISSION DIAGNOSES: 1. Right upper quadrant abdominal pain. 2. Cholelithiasis. 3. Hypertension. 4. Tachycardia. 5. Chronic constipation. 6. Arthritis. 7. Chronic back pain. 8. Lumbar degenerative disk disease. 9. Anxiety. 10.Opioid dependence with COAT contract. 11.Hyperglycemia. DISCHARGE DIAGNOSES: Diagnostic laparoscopy with: 1. Cholecystectomy. 2. Repair of incarcerated incisional hernia. 3. Drainage of pericholecystic abscess. POSTOPERATIVE DIAGNOSES: 1. Acute cholecystitis and cholelithiasis. 2. Incarcerated incisional hernia. 3. Pericholecystic abscess. Date of procedure: 12/09/2020. Surgeon: Messi Isbell MD. HISTORY: Evelin Mcintyre is a 69-year-old female presenting with cholecystitis. After preoperative evaluation and antibiotics, discussion of potential risks and complications, patient wished to proceed with surgical procedure. HOSPITAL COURSE: The patient had her surgery on 12/09/2020. She had no operative complications. On postoperative day #1, she was started on bowel stimulation and she was able to shower and diet was advanced. On 12/11/2020, Discharge Planning was consulted. She had her JANINE drain discontinued, had PT/OT evaluation, and continued with bowel stimulation. On 12/12/2020, she did have a bowel movement. Oral intake was adequate at 1690. She did have 4 bowel movements and was able to be discharged to home with home health care. PHYSICAL EXAMINATION: GENERAL: Evelin is a 69-year-old female. VITAL SIGNS: Height is 5 feet 1 inch, weight is 177 pounds. TPR is 97.7, 94, 16. Blood pressure 144/75. HEENT: Negative. NECK: Supple. HEART: Regular rate and rhythm. LUNGS: Clear. ABDOMEN: She has an open trocar site that was originally packed, it is below the mid sternum, draining a light yellow drainage, and her other two incisions in the right upper quadrant and the umbilical trocar incisions are glued. Abdominal binder has been on. EXTREMITIES: Without peripheral edema. DISPOSITION: Discharged to home with home health care. CONDITION: Stable. FOLLOWUP APPOINTMENT: With Fatimah Mendoza PA-C, on 12/19/2020 at 9 a.m. HOME MEDICATIONS: 1. Celebrex 200 mg p.o. b.i.d., #28. 2. She is to take Tylenol 1000 mg q.6 hours p.r.n. pain. 3. Continue with her oxycodone 10 mg p.o. q.6 hours. 4. Vitamin B complex 1 daily. 5. Metoprolol succinate/Toprol-XL 12.5 mg daily. 6. Flonase 1 spray daily p.r.n. 7. Vitamin D3 2000 international units daily. 8. 70 mg p.o. as directed. 9. She also takes Movantik 1 tablet daily, but has not been taking that. 10.ClearLax 17 g p.o. daily p.r.n. DIET: Regular diet as tolerated. Drink 8 to 10 glasses of water a day. ACTIVITY: No lifting greater than 10 pounds for 2 weeks. OTHER ACTIVITY: Walk 6 times daily inside your home. Driving do not drive for 1 week or within 8 hours of taking narcotic pain medication. Shower/bathing: May shower. Keep operative site clean and dry. DISCHARGE INSTRUCTIONS: Wear abdominal binder for 2 weeks and then as tolerated, and then place a clean piece of gauze over open area until it is completely healed. Notify provider if any fever, increased pain, swelling, redness, drainage, nausea, or vomiting. /[id number]
== END 2020-12-13 11:35 | disposition home health service (06) | DRG 418 ==
LOC: JP.ED 12:58 → JP.SDS 12-09 08:47 → JP.MS 12-09 10:30 → JP.SDS 12-10 08:45 → JP.MS 12-10 08:50
PROVIDERS: ADMIT Surgery; ATTEND Surgery
PROC: 0FT44ZZ Resection of Gallbladder, Percutaneous Endoscopic Approach (ICD-10-PCS; principal; 2020-12-09)
PROC: 0WQF4ZZ Repair Abdominal Wall, Percutaneous Endoscopic Approach (ICD-10-PCS; 2020-12-09)
DX: K80.00 Calculus of gallbladder with acute cholecystitis without obstruction (principal); K43.0 Incisional hernia with obstruction, without gangrene; F11.20 Opioid dependence, uncomplicated; F41.9 Anxiety disorder, unspecified; R73.9 Hyperglycemia, unspecified; M51.36 Other intervertebral disc degeneration, lumbar region; M19.90 Unspecified osteoarthritis, unspecified site; K59.09 Other constipation; R00.0 Tachycardia, unspecified; I10 Essential (primary) hypertension; Z20.822 Contact with and (suspected) exposure to COVID-19; F32.9 Major depressive disorder, single episode, unspecified; Z90.89 Acquired absence of other organs; Z90.710 Acquired absence of both cervix and uterus; Z90.722 Acquired absence of ovaries, bilateral
CPT/HCPCS: 36415; 76705; 76705-26; 80053; 81001; 82247; 83605; 83690; 84075; 84484; 85025; 87070; 87075; 87077; 87186; 87205; 88304; 96365; 96366; 96375; 96376; 97110-GP; 97161-GP; 97165-GO; 97530-GP; 97535-GO; 99285-25; A9270-GY; C9113; J0171; J0295; J0330; J1100; J1170; J1940; J2405; J2704; J2710; J2795; J3010; J3410; J3490; J7120; J7121; U0002

== ENCOUNTER 2022-07-13 20:17 | Emergency (ER) | payer MEDICARE, OTHER ==
[2022-07-13 20:27] VITALS: BP 134/71; PULSE 83
[2022-07-13] MEDS ORDERED: Sodium Chloride 0.9% 10 ML Syringe FLUSH PRN (20:42)
[2022-07-13 20:56] LABS: BASOPHILS ABSOLUTE AUTO 0.05 K/uL (0.00-0.10); BASOPHILS PERCENT AUTO 0.4 % (0.1-1.3); EOSINOPHILS PERCENT AUTO 0.9 % (0.0-5.4); HEMATOCRIT 46.4 % (34.3-46.0); HEMOGLOBIN 15.3 g/dL (11.2-15.5); IMMATURE GRAN ABSOLUTE AUTO 0.05 K/uL (0.00-0.23); IMMATURE GRAN PERCENT AUTO 0.4 % (0.0-0.7); LYMPHOCYTES ABSOLUTE AUTO 2.37 K/uL (0.8-3.3); LYMPHOCYTES PERCENT AUTO 20.3 % (11.4-47.7); MEAN CORPUSCULAR HEMOGLOBIN 29.1 pg (31.6-35.5); MEAN CORPUSCULAR VOLUME 88.4 fL (81.4-99.0); MONOCYTES ABSOLUTE AUTO 0.73 K/uL (0.20-0.90); MONOCYTES PERCENT AUTO 6.3 % (3.3-12.6); NEUTROPHILS ABSOLUTE AUTO 8.36 K/uL (1.0-7.6); NEUTROPHILS PERCENT AUTO 71.7 % (40.0-78.1); PLATELET COUNT,PLT 413 K/uL (130-375); RED BLOOD CELL COUNT 5.25 M/uL (3.77-5.24); WHITE BLOOD CELL COUNT,WBC 11.7 K/uL (3.2-11.0)
[2022-07-13 21:06] LABS: BILIRUBIN,URINE NEGATIVE (NEGATIVE); COLOR,URINE YELLOW (YELLOW); GLUCOSE,URINE NEGATIVE (NEGATIVE); KETONES,URINE NEGATIVE (NEGATIVE); LEUKOCYTE ESTERASE,URINE MODERATE (NEGATIVE); NITRITE,URINE NEGATIVE (NEGATIVE); OCCULT BLOOD,URINE TRACE-INTACT (NEGATIVE); PH,URINE 6.5 (5.0-8.0); PROTEIN,URINE NEGATIVE (NEGATIVE); UROBILINOGEN,URINE 0.2 EU/dL (0.2-1.0)
[2022-07-13 21:15] LABS: AMORPHOUS SEDIMENT,URINE RARE; APPEARANCE,URINE CLOUDY (CLEAR); BACTERIA,URINE MANY; EPITHELIAL CELLS,URINE FEW; MUCUS,URINE FEW; WBC,URINE 50-75 (0-5)
[2022-07-13] MEDS ORDERED: Sodium Chloride 0.9% 10 ML Syringe FLUSH ONE (21:24)
[2022-07-13] MEDS ORDERED: oxyCODONE 5 MG Tab PO ONE (21:29)
[2022-07-13] MEDS ORDERED: Sodium Chloride 0.9% 50 ML IV SCH (21:30)
[2022-07-13] MEDS ORDERED: Iopamidol 755 Mg/ML 100 ML Bottle IV SCH (21:30)
[2022-07-13 21:39] LABS: A/G RATIO 0.8 (1.2-2.2); ALANINE AMINOTRANSFERASE,ALT 22 U/L (12-78); ALKALINE PHOSPHATASE 153 U/L (46-116); ANION GAP 11.4 mmol/L (5.0-14.0); ASPARTATE AMNIOTRANSFERASE,AST 25 U/L (15-37); BILIRUBIN TOTAL 0.5 mg/dL (0.2-1.0); BLOOD UREA NITROGEN,BUN 13 mg/dL (7-18); C-REACTIVE PROTEIN 0.54 mg/dL (0.0-0.3); CALCIUM 8.2 mg/dL (8.5-10.1); CARBON DIOXIDE,CO2 27 mmol/L (21-32); CHLORIDE,CL 99 mmol/L (100-108); CREATININE 1.3 mg/dL (0.6-1.0); EST CRCL DRUG DOSING (CG) 29.52 mL/min; ESTIMATED GFR 44 mL/min (>60); GLUCOSE RANDOM 86 mg/dL (74-106); POTASSIUM,K 3.4 mmol/L (3.6-5.2); SODIUM,NA 134 mmol/L (140-148)
[2022-07-13 21:50] LABS: LACTIC ACID 1.3 mmol/L (0.4-2.0)
== END 2022-07-13 23:30 | disposition home or self-care (01) ==
LOC: JP.ED 20:17
DX: K57.30 Diverticulosis of large intestine without perforation or abscess without bleeding (principal); N30.00 Acute cystitis without hematuria; I10 Essential (primary) hypertension; Z88.8 Allergy status to other drugs, medicaments and biological substances; Z87.891 Personal history of nicotine dependence
CPT/HCPCS: 36415; 74177; 80053; 81001; 83605; 85025; 86140; 87086; 87088; 87186; 99284; A9270; J3490; Q9967

== ENCOUNTER 2022-08-21 08:37 | Day surgery (SDC) | payer MEDICARE ==
[2022-08-21] MEDS ORDERED: Lactated Ringers 1,000 ML IV SCH (09:00)
[2022-08-21] MEDS ORDERED: fentaNYL 50 MCG/ML SDV ONE (09:30)
[2022-08-21] MEDS ORDERED: Propofol 200 MG/20 ML SDV ONE (09:30)
[2022-08-21 11:20] VITALS: BP 139/69; PULSE 63
== END 2022-08-21 11:30 | disposition home or self-care (01) ==
LOC: JP.SDS 08:37
PROVIDERS: ATTEND Student in an Organized Health Care Education/Training Program
DX: K57.30 Diverticulosis of large intestine without perforation or abscess without bleeding (principal); F41.9 Anxiety disorder, unspecified; F32.A Depression, unspecified; E78.00 Pure hypercholesterolemia, unspecified; Z88.8 Allergy status to other drugs, medicaments and biological substances
CPT/HCPCS: 45380; 88305; J2704; J3010; J7120

== ENCOUNTER 2022-10-07 15:35 | Emergency (ER) | payer MEDICARE ==
[2022-10-07] MEDS ORDERED: droPERidol 5 MG/2 ML SDV IVPUSH ONE (16:18)
[2022-10-07 16:30] LABS: BASOPHILS ABSOLUTE AUTO 0.04 K/uL (0.00-0.10); BASOPHILS PERCENT AUTO 0.3 % (0.1-1.3); HEMATOCRIT 46.8 % (34.3-46.0); HEMOGLOBIN 15.2 g/dL (11.2-15.5); IMMATURE GRAN ABSOLUTE AUTO 0.07 K/uL (0.00-0.23); IMMATURE GRAN PERCENT AUTO 0.5 % (0.0-0.7); LYMPHOCYTES ABSOLUTE AUTO 1.01 K/uL (0.8-3.3); LYMPHOCYTES PERCENT AUTO 6.6 % (11.4-47.7); MEAN CORPUSCULAR HEMOGLOBIN 28.5 pg (31.6-35.5); MEAN CORPUSCULAR HGB CONC 32.5 g/dL (31.6-35.5); MEAN CORPUSCULAR VOLUME 87.6 fL (81.4-99.0); MONOCYTES ABSOLUTE AUTO 0.39 K/uL (0.20-0.90); MONOCYTES PERCENT AUTO 2.6 % (3.3-12.6); PLATELET COUNT,PLT 335 K/uL (130-375); RED BLOOD CELL COUNT 5.34 M/uL (3.77-5.24); WHITE BLOOD CELL COUNT,WBC 15.2 K/uL (3.2-11.0)
[2022-10-07] MEDS ORDERED: Sodium Chloride 0.9% 500 ML IV ONE (16:36)
[2022-10-07 16:51] LABS: A/G RATIO 0.8 (1.2-2.2); ALANINE AMINOTRANSFERASE,ALT 24 U/L (12-78); ALBUMIN 3.3 g/dL (3.4-5.0); ALKALINE PHOSPHATASE 186 U/L (46-116); ASPARTATE AMNIOTRANSFERASE,AST 27 U/L (15-37); BILIRUBIN TOTAL 0.6 mg/dL (0.2-1.0); BLOOD UREA NITROGEN,BUN 13 mg/dL (7-18); C-REACTIVE PROTEIN 3.18 mg/dL (0.0-0.3); CALCIUM 8.4 mg/dL (8.5-10.1); CARBON DIOXIDE,CO2 29 mmol/L (21-32); CHLORIDE,CL 96 mmol/L (100-108); CREATININE 1.6 mg/dL (0.6-1.0); EST CRCL DRUG DOSING (CG) 23.98 mL/min; ESTIMATED GFR 34 mL/min (>60); GLUCOSE RANDOM 134 mg/dL (74-106); POTASSIUM,K 4.5 mmol/L (3.6-5.2); PROTEIN TOTAL,TP 7.5 g/dL (6.4-8.2); SODIUM,NA 132 mmol/L (140-148)
[2022-10-07 16:52] LABS: ANION GAP 11.5 mmol/L (5.0-14.0)
[2022-10-07 17:07] LABS: APPEARANCE,URINE CLEAR (CLEAR); BILIRUBIN,URINE SMALL (NEGATIVE); COLOR,URINE YELLOW (YELLOW); GLUCOSE,URINE NEGATIVE (NEGATIVE); KETONES,URINE NEGATIVE (NEGATIVE); LEUKOCYTE ESTERASE,URINE SMALL (NEGATIVE); NITRITE,URINE NEGATIVE (NEGATIVE); OCCULT BLOOD,URINE MODERATE (NEGATIVE); PH,URINE 5.5 (5.0-8.0); PROTEIN,URINE 100 mg/dL (NEGATIVE); UROBILINOGEN,URINE 0.2 EU/dL (0.2-1.0)
[2022-10-07 17:11] LABS: AMORPHOUS SEDIMENT,URINE NOT SEEN; BACTERIA,URINE MANY; EPITHELIAL CELLS,URINE MANY; MUCUS,URINE FEW; WBC,URINE 50-75 (0-5)
[2022-10-07] MEDS ORDERED: Sodium Chloride 0.9% 1,000 ML IV SCH (17:30)
[2022-10-07] MEDS ORDERED: cefTRIAXone 2 GM in Sodium Chloride 0.9% 50 ML IV ONE (17:51)
[2022-10-07] MEDS ORDERED: oxyCODONE 5 MG Tab PO ONE (18:34)
[2022-10-07] MEDS ORDERED: Doxycycline 100 MG Cap PO ONE (18:38)
[2022-10-07] MEDS ORDERED: Acetaminophen/Codeine 300-30 MG Tab PO ONE (20:02)
[2022-10-07 20:06] VITALS: BP 187/92; PULSE 87
== END 2022-10-07 22:16 ==
LOC: JP.ED 15:35
DX: A41.9 Sepsis, unspecified organism (principal); J18.9 Pneumonia, unspecified organism; N30.01 Acute cystitis with hematuria; I10 Essential (primary) hypertension; K21.9 Gastro-esophageal reflux disease without esophagitis; Z79.82 Long term (current) use of aspirin; Z79.899 Other long term (current) drug therapy; Z88.6 Allergy status to analgesic agent; Z88.8 Allergy status to other drugs, medicaments and biological substances
CPT/HCPCS: 36415; 71250; 74176; 80053; 81001; 83605; 84145; 85025; 86140; 87040; 87086; 87088; 87186; 96361; 96365; 96375; 99285; A9270; J0696; J1790; J3490; J7030